=== PATIENT | female | born 1990 | race Two or more races ===

== ENCOUNTER 2020-05-24 22:24 | Emergency (ER) | payer MEDICAID, OTHER ==
[~2020-05-24] VITALS: Ht 160 cm; Wt 117.9 kg
[2020-05-25 03:46] VITALS: BP 114/66
[2020-05-25] MEDS ORDERED: KETOROLAC TROMETH 60MG/2ML VIAL IM ONE (04:00)
== END 2020-05-25 04:31 | disposition home or self-care (01) ==
LOC: ER 22:24
DX: S90.31XA Contusion of right foot, initial encounter (principal); V43.52XA Car driver injured in collision with other type car in traffic accident, initial encounter; Y93.89 Activity, other specified; Y92.488 Other paved roadways as the place of occurrence of the external cause; Y99.8 Other external cause status
CPT/HCPCS: 73630; 96372; 99283; J1885

== ENCOUNTER 2022-05-07 00:38 | Emergency (ER) | payer MEDICAID ==
[~2022-05-07] VITALS: Ht 160 cm; Wt 101.4 kg
[2022-05-07 00:51] VITALS: BP 110/74
[2022-05-07] MEDS ORDERED: AMOX-277 PO (03:12)
[2022-05-07] MEDS ORDERED: PRED20TA2 PO (03:12)
[2022-05-07] MEDS ORDERED: methylPREDNISolone SOD SUCC 40 MG/ML VL IM ONE (03:15)
== END 2022-05-07 03:10 | disposition home or self-care (01) ==
LOC: ER 00:38
DX: J20.9 Acute bronchitis, unspecified (principal)
CPT/HCPCS: 71046; 96372; 99283; J2920